=== PATIENT | female | born 1950 | race Caucasian/White ===

== ENCOUNTER 2022-01-19 12:52 | Emergency (ER) | payer OTHER, SELFPAY ==
[2022-01-19 12:57] VITALS: BP 181/101; PULSE 80; RESP 16; TEMP 36.4; O2SAT 97; BMI 20.2
[2022-01-19 13:00] VITALS: BP 166/106
--- NOTE | 2022-01-19 13:52 | ED_ITS ---
HPI - General Adult General Chief complaint: Jaw Injury/Pain Stated complaint: L side jaw pain Time Seen by Provider: 01/19/22 13:21 Source: patient History of Present Illness HPI narrative: Patient is a 71-year-old woman here with pain in her left jaw since yesterday. Pain has been constant and very well localized to 1 spot in her left jaw, it has been worsening and is now severe. She has been taking Tylenol every 4 hours but it is not helping. She has not noted any swelling or redness. She has not had any fever. She thinks the problem is with a tooth. She has had some upper respiratory symptoms and congestion, but she does not have any pain in her upper teeth. No ear pain. She does have a history of cold sensitivity in that left lower jaw, but at this point she just avoiding eating on that side at all because of concerns about agitating the tooth. She does not have any pain with opening or closing her jaw. Related Data Home Medications Medication Instructions Recorded Confirmed amlodipine 5 mg tablet mg 01/19/22 gabapentin 300 mg capsule mg 01/19/22 lorazepam 0.5 mg tablet mg 01/19/22 sertraline 50 mg tablet mg 01/19/22 zolpidem 10 mg tablet mg 01/19/22 Review of Systems Status of ROS: Reports: 6 or more systems reviewed and unremarkable except as noted in History and below [facility] Social History Smoking Status: Never smoker Do you use any of these nicotine containing products: None Second hand tobacco smoke exposure: No How often do you have a drink containing alcohol: never How often do you have six or more drinks on one occasion: Less than monthly AUDIT-C Alcohol total score: 1 Non-prescribed substance use: denies use service: No Exam Narrative: Exam Narrative: In general, an alert, nontoxic woman. Eyes: Sclera clear. ENT: TMs normal. TMJ nontender to palpation bilaterally. She opens and closes her jaw without difficulty. She has focal tenderness in the left lower jaw just anterior to the angle of the jaw. There is no swelling or erythema. She has tenderness to percussion of her posterior left lower molar. There is no evidence of abscess. Neck: Supple. No adenopathy or masses. Salivary glands normal. Skin: Warm dry. No erythema or warmth. Const: Vital Signs, click to edit/add: Vital Signs - 24 hr 01/19/22 12:57 01/19/22 13:00 Temperature 97.5 F L Pulse Rate [Left P ulse Oximeter] 80 Respiratory Rate 16 Blood Pressure [Le ft Upper Arm] 181/101 H 166/106 H Pulse Oximetry 97 Oxygen Delivery Me thod Room Air Documenting provider has reviewed patient's vital signs: yes Course Course Hospital Course: Overall, I suspect her pain is dentogenic. There is no evidence of abscess or cellulitis. I do not think this represents sinusitis as it is focal an isolated to the lower jaw. I do not think this is cardiac. I am going to start on antibiotics. I am giving her for hydrocodone to help with pain until tomorrow when she can see a dentist. Return for new symptoms such as fever, swelling or redness. Vital Signs Vital signs: Initial Vital Signs Temperature 97.5 F L 01/19/22 12:57 Temperature Source Temporal Artery Scan 01/19/22 12:57 Pulse Rate 80 01/19/22 12:57 Pulse Rhythm 01/19/22 12:57 Respiratory Rate 16 01/19/22 12:57 Blood Pressure 181/101 H 01/19/22 12:57 Blood Pressure Mean 127 01/19/22 12:57 Pulse Oximetry 97 01/19/22 12:57 Oxygen Delivery Method 01/19/22 12:57 Vital Signs Temperature 97.5 F L 01/19/22 12:57 Pulse Rate 80 01/19/22 12:57 Respiratory Rate 16 01/19/22 12:57 Blood Pressure 181/101 H 01/19/22 12:57 Pulse Oximetry 97 01/19/22 12:57 Oxygen Delivery Method 01/19/22 12:57 Temperature 97.5 F L 01/19/22 12:57 Pulse Rate 80 01/19/22 12:57 Respiratory Rate 16 01/19/22 12:57 Blood Pressure 166/106 H 01/19/22 13:00 Pulse Oximetry 97 01/19/22 12:57 Oxygen Delivery Method 01/19/22 12:57 Discharge Plan Discharge Clinical Impression: Pain, dental Patient Disposition: Home, Self-Care Condition: Stable Instructions: Toothache (ED) Additional Instructions: Medications as prescribed. Dental follow-up tomorrow. If you develop significant swelling or fever in the meantime, return for re-evaluation. Prescriptions: No Action amlodipine 5 mg tablet lorazepam 0.5 mg tablet gabapentin 300 mg capsule zolpidem 10 mg tablet Label Comments: TAKE 1 TABLET BY MOUTH EVERY DAY AT BEDTIME sertraline 50 mg tablet Follow Up/Referrals: Manny Estevez MD [Primary Care Provider] - Stand Alone Forms: [employer] Info Instructions
== END 2022-01-19 13:46 | disposition home or self-care (01) ==
LOC: ED 13:41
PROVIDERS: Emergency Provider Emergency Medicine; PCP Family Medicine
DX: K08.89 Other specified disorders of teeth and supporting structures (principal)
CPT/HCPCS: 99282; 99283

== ENCOUNTER 2022-03-26 15:15 | Outpatient (RCR) | payer OTHER, SELFPAY | END 2022-06-12 12:46 | disposition home or self-care (01) | PROVIDERS: PCP Family Medicine; Visit Provider Family Medicine | DX: M48.02 Spinal stenosis, cervical region (principal); Z51.89 Encounter for other specified aftercare | CPT/HCPCS: 97012; 97110; 97140; 97162 ==

== ENCOUNTER 2023-04-29 13:03 | Emergency (ER) | payer OTHER, SELFPAY ==
[2023-04-29 13:17] VITALS: BP 143/83; PULSE 85; RESP 16; TEMP 37; O2SAT 98; BMI 20.8
--- NOTE | 2023-04-29 15:34 | CRLHL7_ITS ---
For Patients: As a result of the Century Cures Act, medical imaging exams and procedure reports are released immediately into your electronic medical record. You may view this report before your referring provider. If you have questions, please contact your health care provider. Indication: Sinus pain. Sinusitis. Technique: CT of the sinuses performed without IV contrast Comparison: None relevant available Findings: Frontal sinuses: Mild paranasal sinus mucosal disease. Ethmoid sinuses: Moderate to severe paranasal sinus mucosal disease. Maxillary sinuses: Moderate left-sided mucosal disease with air-fluid level. Minimal mucosal disease on the right. Sphenoid sinuses: Minimal mucosal disease. The left ostiomeatal unit is occluded, right-side patent. Sphenoethmoidal and frontoethmoidal recesses are occluded. Nasal Cavity: Mild sinusoidal nasal septal deviation. No aggressive periosteal reaction or osseous erosion identified. Visualized intracranial structures appear grossly intact. 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 Impression: 1. Moderate to severe ethmoid and moderate left maxillary sinus mucosal disease. Left maxillary sinus air-fluid level suggesting the possibility of superimposed acute sinusitis. 2. Milder paranasal sinus mucosal disease elsewhere. 3. Occlusion of the left ostiomeatal unit. Please note that all CT scans at this facility use dose modulation, iterative reconstruction, and/or weight-based dosing when appropriate to reduce radiation dose to as low as reasonably achievable. Dictated by Azael Corona MD @ 04/29/2023 4:14:47 PM (Electronically Signed)
--- NOTE | 2023-04-29 15:35 | ED_ITS ---
HPI - General Adult General Chief complaint: Cough Stated complaint: Sinus infection Time Seen by Provider: 04/29/23 15:25 History of Present Illness HPI narrative: This 72-year-old female comes in reporting sinus pressure and pain and has had a cough. She states that she has been sick with these symptoms for about a month or so. She went into urgent care and was prescribed an antibiotic for 5 days for a sinusitis. She completed this treatment and did not have any improvement. She then again went and was prescribed 10 days of a cephalosporin. She has 2 days left of this course of treatment. She does not report any fevers. She states that she had more congestion in her chest but reports that that seems to have cleared. She does have a history of sinusitis that an ear nose and throat physician evaluated and stated that she had a resistant organism there. This was a couple years ago at which time she completed about 6 weeks of an antibiotic for resolution of symptoms. Related Data Home Medications Medication Instructions Recorded Confirmed amlodipine 5 mg tablet 5 mg PO DAILY 01/19/22 04/29/23 lorazepam 0.5 mg tablet 0.5 mg PO BID PRN 01/19/22 04/29/23 sertraline 50 mg tablet 50 mg PO DAILY 01/19/22 04/29/23 zolpidem 10 mg tablet 10 mg PO DAILY 01/19/22 04/29/23 alendronate 70 mg tablet 70 mg PO 04/29/23 aspirin 81 mg capsule 81 mg PO DAILY 04/29/23 04/29/23 cetirizine 10 mg capsule (Zyrtec) 10 mg PO DAILY PRN 04/29/23 04/29/23 Previous Rx's Medication Instructions Recorded amoxicillin 875 mg-potassium 1 tab PO BID #28 tabs 04/29/23 clavulanate 125 mg tablet methylprednisolone 4 mg tablets in See Rx Instructions PO .COMPLEX 04/29/23 a dose pack (Medrol (Sameer)) #21 ea Allergies Allergy/AdvReac Type Severity Reaction Status Date / Time hydrochlorothiazide Allergy Mild Verified 04/29/23 13:22 teramycin Allergy Unknown Uncoded 04/29/23 13:22 Review of Systems Status of ROS: Reports: 10 or more systems reviewed and unremarkable except as noted in History and below Narrative: Constitutional: No fevers, no weight gain or loss. Eyes: No discharge. No vision changes. HENT: Sinus congestion and sinus pain. Cardiovascular: No chest pain, no palpitations. Respiratory: No shortness of breath, no wheezes. She has a cough. Gastrointestinal: No abdominal pain, no vomiting, no diarrhea. Genitourinary: No dysuria, no hematuria. Musculoskeletal: Normal range of motion. Skin: No rashes, no pruritis. Neurological: No dizziness, weakness, sensory change, speech change. Endo/Heme/Allergies: No bruising or bleeding. No polydipsia. Pysch: no suicidality, no anxiety, no insomnia. All other systems reviewed and are negative. [facility] Social History Smoking Status: Never smoker Do you use any of these nicotine containing products: None Second hand tobacco smoke exposure: No How often do you have a drink containing alcohol: never How often do you have six or more drinks on one occasion: Less than monthly AUDIT-C Alcohol total score: 1 Non-prescribed substance use: denies use service: No Exam Narrative: Exam Narrative: Constitutional: Well-developed, well-nourished, no acute distress. HEENT: Normocephalic, atraumatic. Tympanic membranes appear normal bilaterally. Neck: Normal range of motion. Nontender. Supple. Heart: Regular. No murmurs. Normal rate. Intact distal pulses. Lungs: Clear to auscultation. No chest discomfort. No wheezes, rhonchi, or rales. Abdomen: Normal bowel sounds. Nontender. No rebound tenderness. Genitalia: Deferred. Back: No midline tenderness. Normal range of motion. Extremities: Normal range of motion. No injury. Skin: Intact. No rash. Warm. No erythema or pallor. Neurologic: No altered sensation. No weakness. Alert and oriented. Psychiatric: No suicidality. No anxiety or depression. No insomnia. Nursing notes and vitals signs are reviewed. Const: Vital Signs, click to edit/add: Vital Signs - 24 hr 04/29/23 13:17 04/29/23 16:10 Temperature 98.6 F Pulse Rate [Pulse Oximeter] 85 67 Respiratory Rate 16 16 Blood Pressure [Ri ght Upper Arm] 143/83 H 163/86 H Pulse Oximetry 98 96 Oxygen Delivery Me thod Room Air Room Air Course Vital Signs Vital signs: Initial Vital Signs Temperature 98.6 F 04/29/23 13:17 Temperature Source Temporal Artery Scan 04/29/23 13:17 Pulse Rate 85 04/29/23 13:17 Pulse Rhythm Regular 04/29/23 13:17 Pulse Strength 3+ Normal 04/29/23 13:17 Respiratory Rate 16 04/29/23 13:17 Blood Pressure 143/83 H 04/29/23 13:17 Blood Pressure Mean 103 04/29/23 13:17 Blood Pressure Position Sitting 04/29/23 13:17 Pulse Oximetry 98 04/29/23 13:17 Oxygen Delivery Method Room Air 04/29/23 13:17 Vital Signs Temperature 98.6 F 04/29/23 13:17 Pulse Rate 85 04/29/23 13:17 Respiratory Rate 16 04/29/23 13:17 Blood Pressure 143/83 H 04/29/23 13:17 Pulse Oximetry 98 04/29/23 13:17 Oxygen Delivery Method Room Air 04/29/23 13:17 Temperature 98.6 F 04/29/23 13:17 Pulse Rate 67 04/29/23 16:10 Respiratory Rate 16 04/29/23 16:10 Blood Pressure 163/86 H 04/29/23 16:10 Pulse Oximetry 96 04/29/23 16:10 Oxygen Delivery Method Room Air 04/29/23 16:10 Medications Administered Medications: Discontinued Medications Generic Name Dose Route Start Last Admin Trade Name Yakovq PRN Reason Stop Dose Admin Dexamethasone 10 mg 04/29/23 15:34 04/29/23 15:50 Dexamethasone 10 Mg/Ml Inj PO 04/29/23 15:35 10 mg ONCE ONE Administration Medical Decision Making [facility] Narrative Medical decision making narrative: This patient comes in with sinus symptoms and cough as described above. She has had similar symptoms now she reports about 4 years ago at which time she needed to be on an antibiotic for about 6 weeks because of her resistant organism. A CT scan of her sinuses is obtained today and does show evidence of acute on chronic sinusitis. The patient has been taking 8 days of what sounds like a cephalosporin and yet has these CT findings today. It seems that there is more likely some kind of resistant organism again as this has been her 2nd antibiotic in the past month. The patient did receive an oral dose of dexamethasone 10 mg here. I did provide a prescription for 14 days of Augmentin twice daily and for Medrol Dosepak. I advised her to follow-up with ear nose and throat clinic. Imaging Data CT Sinuses: Radiologist's impression: 1. Moderate to severe ethmoid and moderate left maxillary sinus mucosal disease. Left maxillary sinus air-fluid level suggesting the possibility of superimposed acute sinusitis. 2. Milder paranasal sinus mucosal disease elsewhere. 3. Occlusion of the left ostiomeatal unit. Discharge Plan Discharge Clinical Impression: Sinusitis Patient Disposition: Home, Self-Care Condition: Unchanged Additional Instructions: Take medication as prescribed. Follow-up with ear nose and throat clinic for further evaluation and treatment. Return if worsening. Prescriptions: New methylprednisolone [Medrol (Sameer)] 4 mg tablets,dose pack See Rx Instructions .ROUTE .COMPLEX Qty: 21 0RF Rx Instructions: orally per package directions amoxicillin-pot clavulanate 875-125 mg tablet 1 tab PO BID Qty: 28 0RF No Action alendronate 70 mg tablet 70 mg PO aspirin 81 mg capsule 81 mg PO DAILY Zyrtec 10 mg capsule 10 mg PO DAILY PRN amlodipine 5 mg tablet 5 mg PO DAILY lorazepam 0.5 mg tablet 0.5 mg PO BID PRN zolpidem 10 mg tablet 10 mg PO DAILY Patient Comments: TAKE 1 TABLET BY MOUTH EVERY DAY AT BEDTIME sertraline 50 mg tablet 50 mg PO DAILY Follow Up/Referrals: Manny Estevez MD [Primary Care Provider] - Stand Alone Forms: [employer] Info Instructions
--- OUTSIDE RECORDS SUMMARY | 2023-04-29 15:45 | XMS_ITS | Continuity of Care Document ---
Author Name Unknown Organization [facility] Address [address] [place] [address] Phone Care Team Providers Care Economic Development Coordinator Name Role Phone Richar Waldrop Unavailable Unavailable Allergies, Adverse Reactions, Alerts Substance Reaction Status Criticality OXYTETRACYCLINE HCL unknown Active No Infor mation oxytetracycline unknown Active No Informati on hydrochlorothiazide unknown Active No Infor mation Procedures Procedure Date Office/Outpatient Visit,[facility] [place] 2017 Advance Directives Directive Yes / No Effective Date File Name No Information Encounters Encounter Description Practice Location Reason(s) For Visit Diagnoses Date Provider Providers Copied on Encounter Office/Outpat ient Visit,[facility], [address], [place], [place], [id number], [place] tel:[phone] [facility] [place] Cervicalgia David Mcqueen. [facility], [address] [facility] [address], [place], [place], [id number], [place]. tel:[phone] Referring Provider: Manny Schwartz, [facility] [address] , [place], [address]. tel:[phone] [facility], [address], [place], [place], [id number], [place] tel:[phone] [facility] [place] Radiculopathy , cervical region Lorena Hill. [facility], [address], [place], [address], [place]. tel:[phone] Family History Family Member Type Diagnosis Age At Onset No Information Payers Payer name Insurance type Covered libertarian ID Laurence saha(s) [employer] [id number] Social History Type Description Quantity Date Captured Comments Alcohol Use Details Unknown Caffeine Use Details Unknown Tobacco Use Status Never smoked tobacco 2017 Smoking Status Never smoker Non-Smoking Tobacco Use Details : No Details Available : No Details Available Sex Female Vital Signs Date / Time: Height Weight BMI Pulse Rate Blood Pressure Temperature Respiratory Rate Body Surface Area Head Circumference Head Circ. Percentile Wt./Tariq. Percentile BMI percentile Pulse Ox Inhaled Ox 3:14 PM 65.50 in 67.132 kg (148.00 lbs) 24.2 5 kg/m eter (2) 66 /min 134/74 mm[Hg] Chief Complaint And Reason For Visit No Information Reason For Referral Reason For Referral No Information History Of Present Illness Encounter Date Complaint History Of Prese nt Illness No Information Functional Status Date Functional Assessmen t No Information Instructions Date Instruction Additional Infor mation No Information Assessments Type Assessment Date assessment Cervicalgia Patient Care Teams Name Effective Dates (start - stop) Status Members No Information
--- OUTSIDE RECORDS SUMMARY | 2023-04-29 15:45 | XMS_ITS | Continuity of Care Document ---
Author Name Unknown Organization [facility] Address [address] [place] [address] Phone Care Team Providers Care New Business Clerk Name Role Phone Richar Waldrop Unavailable Unavailable Allergies, Adverse Reactions, Alerts Substance Reaction Status Criticality OXYTETRACYCLINE HCL unknown Active No Infor mation oxytetracycline unknown Active No Informati on hydrochlorothiazide unknown Active No Infor mation Procedures Procedure Date Office/Outpatient Visit,[facility] [place] Advance Directives Directive Yes / No Effective Date File Name No Information Encounters Encounter Description Practice Location Reason(s) For Visit Diagnoses Date Provider Providers Copied on Encounter Office/Outpat ient Visit,[facility], [address], [place], [place], [id number], [place] tel:[phone] [facility] [place] Cervicalgia David Mcqueen. [facility], [address] [facility] [address], [place], [place], [id number], [place]. tel:[phone] Referring Provider: Manny Schwartz, [facility] [address] , [place], [address]. tel:[phone] [facility], [address], [place], [place], [id number], [place] tel:[phone] [facility] [place] Radiculopathy , cervical region [place]na [place]. [facility], [address], [place], [address], [place]. tel:[phone] Family History Family Member Type Diagnosis Age At Onset No Information Payers Payer name Insurance type Covered alliance party ID Laurence saha(s) [employer] [id number] Social History Type Description Quantity Date Captured [...]
[2023-04-29] MEDS: dexAMETHasone 10 MG/ML inj PO (15:50)
[2023-04-29 16:10] VITALS: BP 163/86; PULSE 67; RESP 16; O2SAT 96
== END 2023-04-29 16:50 | disposition home or self-care (01) ==
PROVIDERS: Emergency Provider Emergency Medicine Emergency Medical Services; PCP Family Medicine
DX: J32.9 Chronic sinusitis, unspecified (principal)
CPT/HCPCS: 70486; 99284; J1100

== ENCOUNTER 2024-01-15 11:30 | Outpatient (RCR) | payer OTHER, SELFPAY | END 2024-03-21 09:55 | disposition home or self-care (01) | PROVIDERS: PCP Family Medicine; Visit Provider Physician Assistant | DX: M54.9 Dorsalgia, unspecified (principal); M25.511 Pain in right shoulder; M25.512 Pain in left shoulder; Z51.89 Encounter for other specified aftercare | CPT/HCPCS: 97110; 97112; 97140; 97161; 97535 ==

== ENCOUNTER 2024-11-21 14:30 | Outpatient (RCR) | payer OTHER, SELFPAY | END 2024-11-21 18:14 | disposition home or self-care (01) | PROVIDERS: PCP Family Medicine; Visit Provider Family Medicine | DX: M79.641 Pain in right hand (principal); M79.642 Pain in left hand; M18.0 Bilateral primary osteoarthritis of first carpometacarpal joints; Z51.89 Encounter for other specified aftercare | CPT/HCPCS: 97035; 97110; 97112; 97140; 97165; 97530; L3806; L3808; X5282 ==